=== PATIENT | male | born 1930 | race Caucasian/White ===

== ENCOUNTER → 2018-10-29 | Outpatient (CLI) | payer OTHER ==
[~2018-10-29] VITALS: Ht 403.9 cm; Wt 78.9 kg
[~2018-10-29] MED LIST: AMLODIPINE BESYL5 MG PO; ASPIRIN325 PO; ATENOLOL 50MG T50 M1 PO; AVAPRO300 MG PO; CENTRUM SILVER1 EAC1 PO; CENTRUM SILVER1 EAC2 PO; DICLOFENAC SOD50 M1 PO; DICLOFENAC SODI75 M1 PO; DICLOFENAC SODI75 MG PO; FISH OIL 1,2001 EAC3 PO; NABUMETONE 500500 M1 PO; PHENAZOPYRIDIN200 M2 PO; POTASSIUM GLUCO99 M2 PO; SIMVASTATIN40 MG PO; VENTOLIN HFA 1818 GM INH; VITAMINC500 PO
--- NOTE | ~2018-10-29 | HPC ---
[facility] [address] [place] [address] PAIN MANAGEMENT CONSULTATION Name: SHANTHI MCNEIL Mary Room #: REG HENNYShyann Ortega#: [id number] Admission: 10/29/18 Attend Phys: Marlon Smith DO Discharge: Date of : 03/19/30 Report #: [id number] THIS REPORT FOR: //name// CC: Marlon VILLEGAS BOX Garo Box DATE OF SERVICE: 10/29/2018 CHIEF COMPLAINT: Neck pain. HISTORY OF PRESENT ILLNESS: As you know, the patient is an 88-year-old male with longstanding history of chronic neck pain that presented spontaneously without inciting injury or trauma. The patient states the pain began in 2002. He has undergone physical therapy for which he noted good benefit, but nothing prolonged. He has discontinued the physical therapy since undergoing this treatment option despite the fact he saw improvement. He continued to experience neck pain for which he discussed with his primary care physician who had him undergo x-ray imaging of the cervical spine, which showed severe degenerative spondylosis with associated marked anterior angulation of the lower cervical spine when compared to the 2014 data. He was then referred to our clinic to discuss options for treatment. The patient indicates today, pain is continuous and periodic, describes the pain as cramping, gnawing and tender, places current pain score at 10/10, daily average at 10/10, worst pain has been at 10/10. The patient states the pain is exacerbated with moving his head, bending forward and looking down, states lying on the floor with his hands over his head, stretching and heated corn bag tend to improve pain. He has been referred to our service to discuss treatment options for typical arthritic changes for an 88-year-old male. PAST MEDICAL HISTORY: 1. Hypertension. 2. Coronary artery disease. 3. Degenerative joint disease. 4. Prostate cancer. PAST SURGICAL HISTORY: Prostatectomy. Cataract removal. Blepharoplasty. SOCIAL HISTORY: The patient is a reformed smoker. He smoked for 25 years, quit in 1972. Denies IV or illicit drug use. Denies any chronic alcohol use. 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 He is not working. He retired from [employer] in 1989. 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 He is unaccompanied at today's visit. IMAGING: X-ray of the cervical spine obtained on 08/29/2017 shows severe [facility] [address] [place] [address] PAIN MANAGEMENT CONSULTATION Name: MCNEILSHANTHI Mary Room #: REG CLShyann Ortega#: [id number] Admission: 10/29/18 Attend Phys: Marlon Smith DO Discharge: Date of : 03/19/[birth year] Report #: [id number] degenerative spondylosis with associated marked anterior angulation of the lower cervical spine, unchanged from 2013. No fractures, no bony destruction. No MRI available. PQRS: The patient has known osteoarthritic changes of the neck, bilateral hands. The patient places pain intensity at 10/10, not a fall risk, has not had a fall in the last 3 months. He is not on blood thinners. He is not treated for hypertension. He is not on chronic opioids. He is a moderate risk for opioid addiction. He is placing pain impact score at 10/70. Mild interference of daily activities secondary to pain. PHYSICAL EXAMINATION: VITAL SIGNS: Blood pressure 109/65, pulse 57, respiratory rate 20 and unlabored. The patient is saturating 97% on room air. Height 5 feet 9 inches tall and weight 174 pounds, BMI 24.8. GENERAL: Well-developed, well-nourished, well-hydrated 88-year-old male, appearing stated age, placing current pain score at 10/10. HEENT: Normocephalic, atraumatic. Pupils equal, round, reactive to light. Extraocular muscles are intact. Sclerae nonicteric without injection. NEUROLOGIC: Cranial nerves 2-12 grossly intact. Speech is fluent. The patient deemed a good historian. LUNGS: Clear, no wheeze, rhonchi or rales. CARDIOVASCULAR: Regular. No appreciable gallop, no rub. ABDOMEN: Soft, nontender, nondistended, normoactive bowel sounds. EXTREMITIES: Show no clubbing, no cyanosis, no edema. MUSCULOSKELETAL: There is noted restriction of motion of the cervical spine with rotation, lateral flexion and extension. All motions cause increase in overall pain. Spurling's test negative. EXTREMITIES: Upper extremity strength equal and symmetrical 5/5, muscle bulk and tone equal and symmetrical in upper extremities. Deep tendinous reflexes are 1+/4 and bilateral in nature. ASSESSMENT: 1. Cervicalgia. 2. Cervical spondylosis without radicular symptoms. 3. Chronic intractable pain. PLAN: 1. The patient, based on today's physical exam and history he provides, the description the patient uses in regards to pain as well as location of symptoms and lack of any radicular radiation, likely source of the patient's current neck pain is due to the arthritic changes noted in the lower cervical spine at C5-C6 and C6-C7, specifically. We have discussed with the patient the recent x-ray imaging, which shows severe degenerative spondylosis and angulation of the lower cervical spine. We discussed treatment options with the patient today in regard to his cervical issues. The following was discussed. [address] [address] PAIN MANAGEMENT CONSULTATION Name: SHANTHI MCNEIL Room #: REG SAMANTHA Lizzy.#: [id number] Admission: 10/29/18 Attend Phys: Marlon Smith DO Discharge: Date of : 03/19/[birth year] Report #: [id number] We discussed physical therapy, stretching exercises and traction techniques as a way to improve neck mobility, but also to improve overall pain. We discussed medication management, adding nonsteroidal anti-inflammatory to the list of medications to address cervical spondylosis secondary to arthritis. We discussed intraarticular facet injections, medial branch nerve blocks and radiofrequency lesioning as treatment options. We also discussed surgical options, which may ultimately be necessary given the unusual findings at the C5-C6 and C6-C7 levels. After reviewing the risks and benefits of all the proposed treatment options, the patient chose to begin with nonsteroidal anti-inflammatory therapy and stretching. 2. The patient was provided prescription for nabumetone 500 mg dose 1 tab p.o. t.i.d. I have given the patient #90 tablets. I have advised the patient to watch for side effects of dyspepsia, worsening of blood pressure and lower extremity edema. If he notes any of these side effects, discontinue immediately and call for further instructions. The patient was advised not to take any other nonsteroidal anti-inflammatories while on this therapy. 3. The patient will be sent for physical therapy twice a week for 6 weeks. Physical therapy with traction exercises and mobility exercises will improve the patient's overall function and likely reduce overall pain. I believe physical therapy in conjunction with anti-inflammatories is an appropriate treatment. 4. We did discuss the patient's possibility of surgical options. Certainly, more conservative options would be warranted initially, but if no improvement in symptoms, surgical options could be necessary. He will discuss this with his PCP in regards to possible referrals. 5. We will see the patient back in followup visit in 1 month. He wishes to trial the anti-inflammatories and PT initially. If this is in effective, then move forward with other more aggressive treatments. 6. We wish to thank Dr. Daily for the referral of the patient to our clinic. We will keep you apprised of his response to treatment as we address his cervicalgia secondary to cervical spondylosis. By: [id number] Marlon Smith DO /nt
[2018-10-29 13:48] VITALS: BP 109/65
== END ==
LOC: PAIN 11:07
DX: M54.2 Cervicalgia (principal); M54.5 Low back pain; R51 Headache; H92.02 Otalgia, left ear; R53.83 Other fatigue; K21.9 Gastro-esophageal reflux disease without esophagitis; M19.90 Unspecified osteoarthritis, unspecified site; C67.9 Malignant neoplasm of bladder, unspecified

== ENCOUNTER → 2018-11-12 | Outpatient (CLI) | payer OTHER ==
[~2018-11-12] VITALS: Ht 175.3 cm; Wt 79.7 kg
--- NOTE | ~2018-11-12 | HPC ---
[facility] [address] [place] [address] PAIN MANAGEMENT CONSULTATION Name: SHANTHI MCNEIL Room #: REG Shyann Jodran#: [id number] Admission: 11/12/18 Attend Phys: Marlon Smith DO Discharge: Date of : 03/19/30 Report #: [id number] THIS REPORT FOR: //name// CC: Marlon Daily DATE OF SERVICE: 11/12/2018 REFERRING PHYSICIAN: Garo Daily MD. CHIEF COMPLAINT: Neck pain. HISTORY OF PRESENT ILLNESS: As you know, the patient is a very pleasant 88-year-old male with longstanding history of chronic neck pain that presented spontaneously without inciting injury or trauma. The patient states pain began in 2002. He has undergone physical therapy and noted good benefit, but nothing providing prolonged improvement. The patient states pain is most intense when working on his computer where he spent most of his time with a forward flexed position on the cervical spine and also working on his art projects where he is sitting at desk with forward flexion of the cervical spine. He has trialled conservative medication therapy, but has not done well with this. He was referred to our clinic to discuss options for treatment for this longstanding arthritic pain. X-ray of the cervical spine did show severe degenerative spondylosis with associated marked anterior angulation of the lower cervical region. We saw the patient in consultation on 10/29/2018, where he was diagnosed with cervicalgia secondary to cervical spondylosis without radiculopathy and was started on initially medication management. We started the patient on nabumetone, provided him 500 mg 3 times a day dose. He reports improvement with that medication upon return visit today, but has only been taking it p.r.n. He has not been taking it consistently. He returns to discuss options for treatment. He is placing pain today at around 0/10. When pain is present, it is involving mainly just the neck and upper back area. He says massage therapy, lying down and changing positions of the cervical spine improves his pain almost entirely. ALLERGIES: No known drug allergies. CURRENT MEDICATIONS: Ascorbic acid, simvastatin, multivitamin, atenolol, potassium gluconate, albuterol, irbesartan, nabumetone. SOCIAL HISTORY: The patient denies current tobacco use. He is a reformed smoker, quit 25 years ago. Denies IV or illicit drug use. Denies any chronic alcohol use. 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 He is unaccompanied today. [address] [address] PAIN MANAGEMENT CONSULTATION Name: SHANTHI MCNEIL Room #: REG CLI Jordan#: [id number] Admission: 11/12/18 Attend Phys: Marlon Smith DO Discharge: Date of : 03/19/[birth year] Report #: [id number] IMAGING: No new imaging available. PQRS: The patient has known arthritic changes of the neck, bilateral hands. He places pain intensity today 0/10. He is not a fall risk, has not had a fall in the last 3 months. He is not on blood thinners. He is not treated for hypertension, he is on chronic opioids. He is at moderate risk for opioid addiction. He is placing his pain impact score again at 10/70. Mild interference of daily activities secondary to pain. PHYSICAL EXAMINATION: VITAL SIGNS: Blood pressure 120/74, pulse 56, respiratory rate 14 and unlabored. The patient is 95% on room air. Height 5 feet 9 inches tall, weight 175.8 pounds, BMI calculated 25.9. GENERAL: Well-developed, well-nourished, well-hydrated 88-year-old male, appearing his stated age, placing pain score 0/10. HEENT: Normocephalic, atraumatic. Pupils equal, round, reactive to light. EXTREMITIES: Show no clubbing, no cyanosis and no edema. MUSCULOSKELETAL: The patient has noted restriction of motion of cervical spine with rotation, lateral flexion, extension. All motions increase overall pain. Spurling test negative. Upper extremity strength appears equal and symmetrical 5/5, muscle bulk and tone equal and symmetrical when comparing left upper extremity. Right upper extremity deep tendon reflexes 1+/4 bilateral in nature at biceps, brachioradialis and triceps. ASSESSMENT: 1. Cervicalgia. 2. Cervical spondylosis without radicular symptoms. 3. Chronic intractable pain. PLAN: 1. The patient has returned today in followup visit, reporting a pain score 0/10. The patient reports the majority of his pain exists when he is working on his computer where he is looking down at his monitor with a forward flexed cervical spine, also noted pain intensification while doing his art work at various branches in his home where he again is in a forward flexed cervical position. We discussed with the patient today changing some of the ergonomics of his work spaces including his computer station. He can move his monitor into a more neutral position, leaving the cervical spine back in a typical positioning. This is done easily by moving the monitor up, placing the middle of the monitor directly at the eye level. This would allow the patient not have to be in a forward flexed cervical position while working on his computer, which is a significant portion of his day. He can also do this with his work stations if at all possible and this would reduce his exacerbating activities. 2. The patient and I did discuss utilizing of nabumetone. He has noted improvement in symptoms, but he is not taking the medication consistently. We discussed today that he wishes to trial the medication on a more consistent [facility] [address] [place] [address] PAIN MANAGEMENT CONSULTATION Name: SHANTHI MCNEIL Room #: REG CL Lizzy.#: [id number] Admission: 11/12/18 Attend Phys: Marlon Smith DO Discharge: Date of : 03/19/[birth year] Report #: [id number] basis over the next 2 weeks. 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 He has a prescription of the nabumetone available, he can continue this medication as directed. We will see him back in 2 weeks to discuss the efficacy of taking the medication consistently. He is not to take other nonsteroidal anti-inflammatories with this therapy. 3. We will see the patient back in followup visit in approximately 2-3 weeks. At that time, we will review the efficacy of medication management, determine if we wish to continue this therapy or look towards interventional treatment. By: [id number] Marlon Smith DO /nt
[2018-11-12 12:37] VITALS: BP 128/74
== END ==
LOC: PAIN 10:06
DX: M47.892 Other spondylosis, cervical region (principal); G89.4 Chronic pain syndrome

== ENCOUNTER → 2019-03-12 | Outpatient (CLI) | payer OTHER ==
[~2019-03-12] VITALS: Ht 177.8 cm; Wt 76.2 kg
[~2019-03-12] MED LIST changes: +CALCIUM MAGNES1 EAC2 PO; +FISH OIL 1,001000 M2 PO; +OMEPRAZOLE20 M2 PO; +ZINC30 M1 PO
--- NOTE | ~2019-03-12 | HPC ---
[facility] [address] [place] [address] PAIN MANAGEMENT CONSULTATION Name: SHANTHI MCNEIL Room #: REG SAMANTHA Jordan#: [id number] Admission: 03/12/19 ������������������ Attend Phys: Marlon Smith DO Discharge: ������������������ Date of : 03/19/30 Report #: [id number] THIS REPORT FOR: //name// CC: Marlon Daily MD DATE OF SERVICE: 03/12/2019 CHIEF COMPLAINT: Neck pain. HISTORY OF PRESENT ILLNESS: As you know, the patient is a very pleasant 88-year-old male who returns today in followup visit with continued neck pain and upper extremity pain with intermittent paresthesias. He indicates that conservative medical therapy has not provided much in the way of improvement in symptoms. He continues to experience pain that can be positional in nature, but does wake him up in the night with numbness and tingling. He returns today in followup visit to discuss the possibility of undergoing a cervical epidural injection. At today's visit, he does not wish to undergo the procedure due to conflicts in schedule. He wishes to plan the injection in the next week. He returns specifically to discuss this injection and to begin scheduling. ALLERGIES: No known drug allergies. CURRENT MEDICATIONS: Ascorbic acid, simvastatin, multivitamin, atenolol, potassium gluconate, albuterol, irbesartan and nabumetone. SOCIAL HISTORY: The patient denies current tobacco use. He is a reformed smoker, quit approximately 25 years ago. Denies IV or illicit drug use. Denies any chronic alcohol use. 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 He is unaccompanied today. IMAGING: No new imaging available. PQRS: The patient has known arthritic changes of the cervical spine, bilateral hands. No rheumatoid arthritis. He places pain intensity anywhere from 2-8/10 depending on activities. He is not a fall risk. He has not had a fall in the last 3 months. He is not on blood thinners. He is treated for hypertension. He is not on chronic opioids, but does have a low opioid addiction potential. His pain impact score 10/70 indicating mild interference of daily activities secondary to pain. PHYSICAL EXAMINATION: VITAL SIGNS: Blood pressure 134/85, pulse is 64, respiratory rate 16 and unlabored. The patient is 94% on room air. Height 5 feet 10 inches tall, weight 168 pounds, BMI calculated 24.1. [facility] [address] [place] [address] PAIN MANAGEMENT CONSULTATION Name: SHANTHI MCNEIL Room #: REG CLShyann Mary#: [id number] Admission: 03/12/19 ������������������ Attend Phys: Marlon Smith DO Discharge: ������������������ Date of : 03/19/30 Report #: [id number] GENERAL: Well-developed, well-nourished, well-hydrated 88-year-old male appearing stated age, placing current pain score anywhere from 2-8/10. HEENT: Normocephalic, atraumatic. Pupils equal, round, reactive to light. Speech fluent. The patient deemed an excellent historian. EXTREMITIES: Show no clubbing, no cyanosis, and no edema. MUSCULOSKELETAL: Upper extremity strength appears symmetrical 5/5, muscle bulk and tone equal and symmetrical in comparing left upper extremity to right. Deep tendinous reflex is equal and symmetrical at biceps, brachialis and triceps is 1+/4. Spurling's test is equivocal. Cervical provocation testing is met with increased pain and some crepitus with movement. ASSESSMENT: 1. Chronic cervical radiculopathy. 2. Cervical spondylosis with radicular symptoms. 3. Cervicalgia. 4. Chronic intractable pain. PLAN: 1. The patient returns today in followup visit, wishing to discuss further possibility of undergoing a cervical epidural injection under fluoroscopic guidance. The patient and I did discuss this as a possible treatment option in the past, though initially the patient chose to begin with conservative medication management. This has proven to provide some improvement in symptoms, but has not given prolonged improvement to be able to go about his activities of daily living. He returns today in followup visit to discuss the possibility of undergoing a cervical epidural injection. 2. We discussed with the patient today the risks and benefits of a cervical epidural injection. These risks include but are not necessarily limited to bleeding, bruising, infection, worsening pain, no relief of pain, also risk of temporary or permanent muscle weakness, temporary or permanent nerve damage, possible paralysis and . The patient states he understood and does wish to schedule to undergo the procedure next week. 3. We will make the patient an appointment next 03/19/2019, to undergo the first in a series of cervical epidural injections. This works better for the patient's schedule and he can then go home and relax after the procedure and maintain relatively sedentary activities for the first 24 hours post-injection in hopes of improving the injection outcome. We will see the patient back in followup visit in 1 week. ��������������������������������������������� ���������������������������������������� By: ��������������������������������������������� [id number] Marlon Smith DO /nt
[2019-03-12 10:15] VITALS: BP 134/85
--- NOTE | 2019-03-12 10:28 | NUR ---
Pain Clinic Assessment: 1. History of Osteoarthritis: Not Applicable History of Rheumatoid Arthritis: Not Applicable 2. Height: 5 ft. 10 in. 177.8 cm. Weight: 168.0 lb. oz. 76.204 kg. Patient's BMI: 24.1 3. Vital Signs: BP: 134/85 Pulse: 64 Resp: 16 Temp: 02 Sat: 94 ECG Mon: 4. Pain Intensity: AVG-1-2, FLARE-8 5. Fall Risk: Dizziness: N Needs help standing or walking: N Fallen in the last 3 months: N Fall risk comments: 6. Patient on Blood Thinner: None 7. History of Hypertension: Y 8. Opioid Therapy greater than 6 weeks: N Opiate Contract Signed: 9. Risk Assessment Tool Provided: LOW RISK 0/3 10. Functional Assessment Tool: 11. Recreational Drug Use: Never Drug Type: Tobacco Use: Former Smoker Tobacco Type: Amount or Packs/day: How Many Years: Alcohol Use: No Frequency: Quant:
== END ==
LOC: PAIN 07:11
DX: M47.22 Other spondylosis with radiculopathy, cervical region (principal); G89.4 Chronic pain syndrome; Z79.899 Other long term (current) drug therapy

== ENCOUNTER → 2019-04-09 | Outpatient (CLI) | payer OTHER ==
[~2019-04-09] VITALS: Ht 177.8 cm; Wt 76.1 kg
[~2019-04-09] MED LIST changes: +TRAMADOL 50 MG50 MG PO
[2019-04-09 09:40] VITALS: BP 136/73
--- NOTE | 2019-04-09 10:23 | NUR ---
Pain Clinic Assessment: 1. History of Osteoarthritis: Not Applicable History of Rheumatoid Arthritis: Not Applicable 2. Height: 5 ft. 10 in. 177.8 cm. Weight: 167.8 lb. oz. 76.114 kg. Patient's BMI: 24.1 3. Vital Signs: BP: 136/73 Pulse: 70 Resp: 16 Temp: 02 Sat: 96 ECG Mon: 4. Pain Intensity: 8 5. Fall Risk: Dizziness: N Needs help standing or walking: N Fallen in the last 3 months: Y Fall risk comments: 6. Patient on Blood Thinner: None 7. History of Hypertension: Y 8. Opioid Therapy greater than 6 weeks: N Opiate Contract Signed: 9. Risk Assessment Tool Provided: LOW RISK 0/3 10. Functional Assessment Tool: 11. Recreational Drug Use: Never Drug Type: Tobacco Use: Former Smoker Tobacco Type: Amount or Packs/day: How Many Years: Alcohol Use: No Frequency: Quant:
--- NOTE | 2019-04-16 09:24 | HPC ---
[facility] [place] [address] PAIN MANAGEMENT CONSULTATION Name: SHANTHI MCNEIL Room #: REG SAMANTHA Jordan#: [id number] Admission: 04/09/19 ������������������ Attend Phys: Marlon Smith DO Discharge: ������������������ Date of : 03/19/30 Report #: [id number] THIS REPORT FOR: //name// CC: Marlon Daily MD DATE OF SERVICE: 04/09/2019 CHIEF COMPLAINT: Neck pain. HISTORY OF PRESENT ILLNESS: As you know, the patient is a very pleasant 89-year-old male returning today in followup visit having undergone the first in a series of cervical epidural injections under fluoroscopic guidance. Despite this injection being performed 03/19/2019, patient received "no improvement in symptoms." He returns today in followup visit to discuss options for treatment. As you are aware, the patient has severe degenerative spondylosis associated with marked anterior angulation of the lower cervical spine. We trialled cervical epidural injection as he was experiencing some radicular component to his symptoms, but unfortunately his symptoms did not improve. He returns to discuss options for treatment today. ALLERGIES: No known drug allergies. CURRENT MEDICATIONS: Omeprazole, aspirin, zinc gluconate, calcium carbonate, omega-3 fish oil, diclofenac sodium, irbesartan, albuterol, potassium, atenolol, multivitamins, simvastatin, ascorbic acid. SOCIAL HISTORY: The patient denies current tobacco use. He is a reformed smoker, quit about 25 years ago. Denies IV or illicit drug use. Denies any chronic alcohol use. 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 He continues to work on personal projects. He is unaccompanied today. IMAGING: No new imaging available. PQRS: The patient has known significant arthritic changes of the cervical spine, bilateral hands and lumbar spine. Denies rheumatoid arthritis. He is placing pain intensity today at 8/10. He is not a fall risk, but has had a fall in the last 6 months, apparently tripped over some objects at home. He does not use any type of ambulatory device. He is not on blood thinners, but is treated for hypertension. He is not on any opioids and has a low opioid addiction. Potentially, he is placing pain impact score at 10/70 indicating mild interference of daily activities secondary to pain. PHYSICAL EXAMINATION: VITAL SIGNS: Blood pressure 136/73, pulse 70, respiratory rate 16 and [facility] [address] [place] [address] PAIN MANAGEMENT CONSULTATION Name: SHANTHI MCNEIL [facility] [id number] Admission: 04/09/19 ������������������ Attend Phys: Marlon Smith DO Discharge: ������������������ Date of : 03/19/30 Report #: [id number] unlabored. The patient is 96% on room air. Height 5 feet 10 inches tall, weight 167.8 pounds, BMI calculated 24.1. GENERAL: Well-developed, well-nourished, well-hydrated 89-year-old male appearing his stated age, placing current pain score at 8/10. HEENT: Normocephalic, atraumatic. Pupils equal, round, reactive to light. EXTREMITIES: Show no clubbing, no cyanosis, and no edema. MUSCULOSKELETAL: Upper extremity strength is symmetrical again today 5/5. Muscle bulk and tone equal and symmetrical in comparing left upper extremity to right. Intact to light touch from C5-T1 dermatomes. Cervical provocation testing is met with increased pain. There is restriction of motion, mainly with extension and flexion. Spurling's test is equivocal. ASSESSMENT: 1. Cervical radiculopathy. 2. Cervical spondylosis with radiculopathy. 3. Cervicalgia. 4. Facet arthropathy of cervical spine. 5. Chronic intractable pain. PLAN: 1. The patient returns today in followup visit having indicated no improvement in symptoms with the epidural injection provided at last visit. The patient reports not even transient improvement in symptoms. This would indicate to this physician, the main generator at this point would be the facet joints of the cervical spine. We discussed the following treatment options to help with facet generated pain. We discussed physical therapy, stretching exercises and traction techniques as an option for treatment. We discussed medication management adding tramadol when pain is intense utilizing anti-inflammatories for mild to moderate pain. We discussed intra-articular facet injections, medial branch nerve blocks and radiofrequency lesioning of the cervical facet joints. This would have to be done at another facility as we do not offer this at our [place] office. We also discussed surgical options. After reviewing the risks and benefits of all proposed treatment options, the patient chose to make changes in medication management. 2. The patient was provided prescription of tramadol 50 mg dose 1 tab p.o. q. 4 hours p.r.n. for pain. I have given the patient #30 tablets to trial. The patient will utilize the medication over the next 7 days, contact our clinic next week to advise of efficacy. If he notes improvement in symptoms and no side effects, I would recommend continuing this for as-needed treatment. 3. We will keep you apprised of any other changes made in medication management [facility] [address] [place] [address] PAIN MANAGEMENT CONSULTATION Name: SHANTHI MCNEIL Room #: CABRERA BallNuha#: [id number] Admission: 04/09/19 ������������������ Attend Phys: Marlon Smith DO Discharge: ������������������ Date of : 03/19/30 Report #: [id number] in this patient's case. We are hopeful he will see good improvement with the tramadol therapy. We will await his call next week for efficacy. ��������������������������������������������� <ELECTRONICALLY SIGNED> ���������������������������������������� By: Marlon Smith DO ��������������������������������������������� 04/16/19 0924 [id number] Marlon Smith DO /nt
== END ==
LOC: PAIN 06:50
DX: M47.22 Other spondylosis with radiculopathy, cervical region (principal); G89.4 Chronic pain syndrome; Z79.899 Other long term (current) drug therapy

== ENCOUNTER → 2019-04-29 | Outpatient (CLI) | payer OTHER ==
[~2019-04-29] VITALS: Ht 177.8 cm; Wt 75.4 kg
[~2019-04-29] MED LIST changes: +HYDROCODON-ACE1 EAC7 PO
--- NOTE | ~2019-04-29 | HPC ---
[facility] [address] [place] [address] PAIN MANAGEMENT CONSULTATION Name: SHANTHI MCNEIL Room #: REG CLShyann Alex.#: [id number] Admission: 04/29/19 ������������������ Attend Phys: Marlon Smith DO Discharge: ������������������ Date of : 03/19/30 Report #: [id number] THIS REPORT FOR: //name// CC: Marlon Daily MD DATE OF SERVICE: 04/29/2019 CHIEF COMPLAINT: Neck pain. HISTORY OF PRESENT ILLNESS: As you know, the patient is an 89-year-old male, returning in followup visit indicating no significant improvement with the cervical epidural injection. He reports pain today at level of 8/10. States his pain involves the neck, bilateral shoulders, has been present for 15 years. He states his pain is aching in sensation, exacerbated with looking down or bending, improves with stretching. He returns today in followup visit having noted no benefit with the previous cervical epidural injection. ALLERGIES: No known drug allergies. CURRENT MEDICATIONS: Ascorbic acid, simvastatin, multivitamin, atenolol, potassium gluconate, albuterol, irbesartan, nabumetone. SOCIAL HISTORY: The patient denies current tobacco use. He is a reformed smoker, quit approximately 25 years ago. Denies IV or illicit drug use. Denies any chronic alcohol use. 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 He is unaccompanied today. IMAGING: No new imaging available. PQRS: The patient has osteoarthritic changes of the cervical spine, bilateral hands and lumbar spine. Denies rheumatoid arthritis. He is placing pain intensity at 8/10. He is not a fall risk, has not had a fall in the last 3 months. He is not on blood thinners. He is treated for hypertension. He has been on opioids for a period of time, but he is a low risk for opioid addiction. He is placing pain impact score at about 10/70 indicating mild interference of daily activity secondary to pain. PHYSICAL EXAMINATION: VITAL SIGNS: Blood pressure 100/69, pulse 63, respiratory rate 14 and unlabored. The patient is 95% on room air. Height 5 feet 10 inches tall, weight 166.2 pounds, BMI calculated 23.8. GENERAL: Well-developed, well-nourished, well-hydrated, 89-year-old male. He appears stated age. Pain is rated today at 8/10. HEENT: Normocephalic, atraumatic. Pupils equal, round, reactive to light. [facility] [address] [place] [address] PAIN MANAGEMENT CONSULTATION Name: SHANTHI MCNEIL Room #: REG CLI [facility]#: [id number] Admission: 04/29/19 ������������������ Attend Phys: Marlon Smith DO Discharge: ������������������ Date of : 03/19/30 Report #: [id number] EXTREMITIES: Show no clubbing, no cyanosis, and no edema. MUSCULOSKELETAL: Upper extremity strength remains symmetrical 5/5. Muscle bulk and tone equal and symmetrical in upper extremities. He is intact to light touch from C5 to T1 dermatomes. Cervical provocation testing is met with increasing pain, restriction of motion noted to be moderate. Spurling's test equivocal. ASSESSMENT: 1. Chronic cervical radiculopathy, unresponsive to cervical epidural injection. 2. Cervical spondylosis with radicular symptoms. 3. Cervical facet syndrome. 4. Cervicalgia. 5. Chronic intractable pain. PLAN: 1. The patient returns today in followup visit, unfortunately noticing no improvement in symptoms with the epidural injection provided at the last visit. His symptoms continued to present in the level of 8/10, exacerbated with activity which is likely facet related only. We discussed with the patient treatment options for facet arthropathy pain involving the cervical area. These would include the following treatment options: We discussed physical therapy with traction techniques. We discussed medication management utilizing a consistent nonsteroidal anti-inflammatory and a possible increase in his current pain medication from tramadol to hydrocodone for better pain control. We discussed intra-articular facet injections, medial branch nerve blocks and radiofrequency lesioning, all of which the patient would have to be referred to a new clinic to undergo as we do not provide these options for treatment. Also, we discussed surgical options. After reviewing the risks and benefits of all the proposed treatment options, the patient chose to make further adjustments in medication management. 2. The patient was advised to discontinue tramadol; in place, we will use hydrocodone 5/325 one tab p.o. q.6 hours p.r.n. for pain. I have given the patient #30 tablets to trial over the next week to week and a half. The patient will contact our clinic if it is effective for pain control and we will provide him with prescriptions of this medication. We are hopeful the patient will see good benefit without side effects. He will watch for side effects of somnolence, decrease in mental acuity, disorientation, confusion, mental slowing, nausea, vomiting and constipation. If he notes any side effects, discontinue immediately, call for further instructions. 3. We will see the patient back in followup visit on an as-needed basis. If [address] [place] [address] PAIN MANAGEMENT CONSULTATION Name: SHANTHI MCNEIL Room #: CABRERA SAMANTHA Ortega#: [id number] Admission: 04/29/19 ������������������ Attend Phys: Marlon Smith DO Discharge: ������������������ Date of : 03/19/30 Report #: [id number] the patient does wish to look towards more interventional treatments, he will need referrals to other pain clinics. ��������������������������������������������� ���������������������������������������� By: ��������������������������������������������� [id number] Marlon Smith DO /nt
[2019-04-29 14:54] VITALS: BP 100/69
--- NOTE | 2019-04-29 15:16 | NUR ---
Pain Clinic Assessment: 1. History of Osteoarthritis: Not Applicable History of Rheumatoid Arthritis: Not Applicable 2. Height: 5 ft. 10 in. 177.8 cm. Weight: 166.2 lb. oz. 75.388 kg. Patient's BMI: 23.8 3. Vital Signs: BP: 100/69 Pulse: 63 Resp: 14 Temp: 02 Sat: 95 ECG Mon: 4. Pain Intensity: 8 5. Fall Risk: Dizziness: Y Needs help standing or walking: N Fallen in the last 3 months: N Fall risk comments: 6. Patient on Blood Thinner: None 7. History of Hypertension: Y 8. Opioid Therapy greater than 6 weeks: N Opiate Contract Signed: 9. Risk Assessment Tool Provided: LOW RISK 0/3 10. Functional Assessment Tool: 11. Recreational Drug Use: Never Drug Type: Tobacco Use: Former Smoker Tobacco Type: Amount or Packs/day: How Many Years: Alcohol Use: No Frequency: Quant:
== END ==
LOC: PAIN 06:57
DX: M54.2 Cervicalgia (principal); M47.22 Other spondylosis with radiculopathy, cervical region; G89.29 Other chronic pain; M53.1 Cervicobrachial syndrome

== ENCOUNTER → 2019-05-21 | Outpatient (CLI) | payer OTHER ==
[~2019-05-21] VITALS: Ht 170.2 cm; Wt 76.2 kg
[~2019-05-21] MED LIST changes: +BACLOFEN 10MG T10 MG PO; +ROXICODONE5 MG PO
[2019-05-21 10:52] VITALS: BP 137/67
--- NOTE | 2019-05-21 10:55 | NUR ---
Pain Clinic Assessment: 1. History of Osteoarthritis: Not Applicable History of Rheumatoid Arthritis: Not Applicable 2. Height: 5 ft. 7 in. 170.2 cm. Weight: 168.0 lb. oz. 76.204 kg. Patient's BMI: 26.3 3. Vital Signs: BP: 137/67 Pulse: 65 Resp: 16 Temp: 02 Sat: 95 ECG Mon: 4. Pain Intensity: 2-3 5. Fall Risk: Dizziness: N Needs help standing or walking: N Fallen in the last 3 months: N Fall risk comments: 6. Patient on Blood Thinner: None 7. History of Hypertension: Y 8. Opioid Therapy greater than 6 weeks: N Opiate Contract Signed: 9. Risk Assessment Tool Provided: LOW RISK 0/3 10. Functional Assessment Tool: 11. Recreational Drug Use: Never Drug Type: Tobacco Use: Former Smoker Tobacco Type: Amount or Packs/day: How Many Years: Alcohol Use: No Frequency: Quant:
--- NOTE | 2019-05-27 13:04 | HPC ---
[facility] [address] [place] [address] PAIN MANAGEMENT CONSULTATION Name: SHANTHI MCNEIL Room #: REG SAMANTHA Jordan#: [id number] Admission: 05/21/19 ������������������ Attend Phys: Marlon Smith DO Discharge: ������������������ Date of : 03/19/30 Report #: [id number] THIS REPORT FOR: //name// CC: Marlon Daily MD DATE OF SERVICE: 05/21/2019 CHIEF COMPLAINT: Neck pain, right buttock and posterolateral thigh pain. HISTORY OF PRESENT ILLNESS: As you know, the patient is an 89-year-old male who was referred to our clinic for chronic neck pain due to severe osteoarthritic changes in the cervical spine. We have been treating the patient with various options of therapy. He has undergone injections, started on medication with some improvement in symptoms. He returns today with acute onset of low back pain, right buttock, and posterolateral thigh pain. He believes he may have injured his hip, bothering activities, though he is pointing to areas at the buttock area with radiation down the posterolateral thigh, more classic for lumbar radiculopathy. He has had symptoms likely this in the past and has undergone treatment with spontaneous resolution of pain. He comes to us with no imaging of the area as this is an acute change in his medical condition. He reports today pain level of anywhere from 2-3/10. Pain begins in the right buttock, lower back area, radiates down the posterolateral thigh, but not below the knee. He states that the pain is exacerbated with walking, standing, and trying to sit. Improves with stretching, heat and cold compresses. 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 ALLERGIES: No known drug allergies. CURRENT MEDICATIONS: Ascorbic acid 500 mg once a day, simvastatin 40 mg per daily, multivitamin 1 tab per day, atenolol 50 mg twice a day, potassium gluconate 99 mg once a day, albuterol 2 puffs q. 4 hours p.r.n., Irbesartan 300 mg once a day, Voltaren gel apply topically to the cervical spine as needed, calcium carbonate 1 tab per day, omega-3 fish oil 1 tab per day, zinc gluconate 30 mg once a day, aspirin 325 mg per day, omeprazole 20 mg per day, and hydrocodone 5/325 one tab every 6 hours p.r.n. pain. SOCIAL HISTORY: The patient denies current tobacco use. He is a reformed smoker, quit approximately 25 years ago. Denies IV or illicit drug use. Denies any chronic alcohol use. 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 He is unaccompanied today. PQRS: The patient has no known osteoarthritic changes of the cervical spine, [address] [address] PAIN MANAGEMENT CONSULTATION Name: SHANTHI MCNEIL Room #: REG SAMANTHA Ortega#: [id number] Admission: 05/21/19 ������������������ Attend Phys: Marlon Smith DO Discharge: ������������������ Date of : 03/19/30 Report #: [id number] bilateral hands, and lumbar spine. Denies rheumatoid arthritis. He places his current pain score at 2-3/10. He is not a fall risk, has not had fallen in the last 3 months. He is not on blood thinners. He is treated for hypertension. He is on opioids for pain control, but has a low opioid addiction potentially. He is placing pain impact score at 10/70 indicating mild interference of daily activities secondary to pain. IMAGING: There is no new imaging available. PHYSICAL EXAMINATION: VITAL SIGNS: Blood pressure 137/67, pulse 65, respiratory rate 16 and unlabored. The patient is 95% on room air. Height 5 feet 7 inches tall, weight 168 pounds, BMI calculated 26.3. GENERAL: Well-developed, well-nourished, well-hydrated 89-year-old male appearing his stated age. He is placing pain score up to 2-3/10. HEENT: Normocephalic, atraumatic. Pupils equal, round, reactive to light. Extraocular muscles are intact. Speech fluent. LUNGS: Remain clear. No wheeze, rhonchi, or rales. CARDIOVASCULAR: Regular. No appreciable gallop or rub. EXTREMITIES: Show no clubbing, no cyanosis, and no edema. MUSCULOSKELETAL: Upper extremity strength remains symmetrical 5/5. Muscle bulk and tone equal and symmetrical in comparing left upper extremity to right. Intact to light touch from C5-T1 dermatomes. Cervical provocation testing is met with increasing overall pain with restriction of motion noted to be moderate. Spurling's test remains equivocal. Lower extremity strength appears equal and symmetrical 5/5. Slight giveaway strength noted due to pain generation in the right buttock area with hip flexion, knee extension when compared to left. Muscle bulk and tone is symmetrical when comparing left lower extremity to right. He is intact to light touch from L1 through S2 dermatomes. Seated straight leg raising mildly positive right. Supine straight leg raising positive right. Aydee's test negative. Modified Gaenslen's positive for axial low back pain. ASSESSMENT: 1. Chronic cervical radiculopathy. 2. Severe cervical spondylosis with radicular symptoms. 3. Cervical facet syndrome. 4. Cervicalgia. 5. Lumbar radiculopathy. 6. Lumbar degeneration. 7. Lumbosacral spondylosis with radiculopathy. 8. Chronic intractable pain. PLAN: 1. Based on today's physical exam and history the patient has provided, the description the patient uses in regard to symptoms as well as the distribution [facility] [address] [place] [address] PAIN MANAGEMENT CONSULTATION Name: SHANTHI MCNEIL Room #: REG CLI Jordan#: [id number] Admission: 05/21/19 ������������������ Attend Phys: Marlon Smith DO Discharge: ������������������ Date of : 03/19/30 Report #: [id number] of pain he is experiencing at present, likely source of the patient's low back pain, right buttock and posterolateral thigh pain appears to be lumbar radiculopathy. This would not be unusual given the findings in the patient's cervical spine to see similar findings in the lumbar spine barring any specific injury to either of the areas. We do not have imaging of the lumbar spine available to review, but certain assumptions can be made about the patient's lumbar pathology based on a cervical pathology noted. It does appear the patient is suffering from lumbar radicular symptoms radiating on the L5 dermatomal distribution given the current pain positioning. We discussed with the patient treatment options for lumbar radiculopathy, but also to address the ongoing cervicalgia secondary to severe facet arthropathy changes of the cervical spine. After an extended discussion of treatment where we discussed the possibility of having the patient undergo physical therapy, stretching exercises, and core strengthening to stabilize the lower back, making changes in medication management to address both pain generators, we also discussed injection therapy including epidural injections in the lumbar spine, possibly even looking towards medial branch nerve blocks, radiofrequency lesioning if symptoms are also correlating to facet arthropathy pain. We also discussed spinal cord stimulator therapy and surgical options. We had this discussion that lasted over 24 minutes of time where we described each of the treatment options available. After that discussion, the patient chose to make adjustments in medication management. 2. The patient and I discussed the efficacy of the hydrocodone provided at our previous visit. He indicates that he is receiving some benefit, but does not feel that is providing significant improvement. We will make adjustments in this medication increasing the dose to oxycodone in hopes of providing better pain control, but reducing any potential side effects. 3. The patient was provided prescription of oxycodone 5 mg dose 1 tab p.o. t.i.d. p.r.n. pain. I have given him a short dosing of medication #30 tablets to trial. We will watch him for side effects of somnolence, decrease in mental acuity, disorientation, confusion, mental slowing, and constipation. He will monitor for any side effects, but also monitor whether or not his symptoms have improved. We have advised the patient if this is working well, he is to contact our clinic. We will provide a full prescription of that medication. 4. We discussed the pain generator in the cervical region. There appears to be a significant portion of myofascial symptoms. His symptoms are exacerbated with forward flexion of the cervical spine and trying to arise from that position, which would indicate more myofascial and facet arthropathy kind of pain. We have discussed muscle relaxants in the past. We will start the patient on baclofen today. I have given baclofen 10 mg dose 1 tab p.o. t.i.d. p.r.n. muscle spasms. He was advised to watch for side effects with this medication including sleepiness, disorientation, confusion, mental slowing. He is not to drive or operate heavy equipment while on this medication. He is given #30 tablets, advised to trial the medication over the next couple of days. If it is working well, contact our clinic and we will provide a full prescription. 5. The patient and I did discuss the possibility of undergoing injection [facility] [address] [place] [address] PAIN MANAGEMENT CONSULTATION Name: SHANTHI MCNEIL Room #: REG HENNYShyann Ortega#: [id number] Admission: 05/21/19 ������������������ Attend Phys: Marlon Smith DO Discharge: ������������������ Date of : 03/19/30 Report #: [id number] therapy to address lumbar symptoms. He wishes to determine if medication therapy can improve his overall symptoms. If he does not see improvement, he would return for possible epidural injection. He is going to talk to his PCP about possibly getting imaging of the lumbar region for further evaluation as well. We will see the patient back in followup visit to discuss those issues at our next visit if necessary. 6. 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 I have discussed the possibility of making some adjustments in his activities addressing more ergonomic positioning of his art work, so that he has to spend less time in a forward flexed cervical position. This will alleviate the main pain generator he has been discussing in the past, changes in his work area would significantly improve the patient's symptoms. He is going to address those over the next week. 7. We will see the patient back in followup visit to discuss medication management or injection therapies as necessary. ��������������������������������������������� <ELECTRONICALLY SIGNED> ���������������������������������������� By: Marlon Smith DO ��������������������������������������������� 05/27/19 1304 [id number] Marlon Smith DO /nt
== END ==
LOC: PAIN 06:52
DX: M47.22 Other spondylosis with radiculopathy, cervical region (principal); M51.16 Intervertebral disc disorders with radiculopathy, lumbar region; M48.061 Spinal stenosis, lumbar region without neurogenic claudication; M47.26 Other spondylosis with radiculopathy, lumbar region; G89.4 Chronic pain syndrome; Z79.899 Other long term (current) drug therapy

== ENCOUNTER → 2019-12-11 | Outpatient (CLI) | payer OTHER | LOC: SJCVC 14:40 | DX: I25.10 Atherosclerotic heart disease of native coronary artery without angina pectoris (principal); E78.00 Pure hypercholesterolemia, unspecified; I73.9 Peripheral vascular disease, unspecified; I38 Endocarditis, valve unspecified; I10 Essential (primary) hypertension; R42 Dizziness and giddiness; Z79.899 Other long term (current) drug therapy ==